=== PATIENT | female | born 1985 | race Caucasian/White ===

== ENCOUNTER 2020-06-01 11:37 | Inpatient (IN) | payer MEDICAID ==
[~2020-06-01] VITALS: Ht 152.4 cm; Wt 111.6 kg
[2020-06-01] MEDS ORDERED: IPRATROPIUM BROMIDE (0.02%) 0.5MG/2.5ML NEB HHN STA (12:05)
[2020-06-01] MEDS ORDERED: DEXAMETHASONE 10 MG/ML VIAL IV NR (13:00)
[2020-06-01 13:03] LABS: BASOPHILS % 0.3 % (0.0-2.0); EOSINOPHILS % 0.2 % (0.0-5.0); HEMATOCRIT. 41.4 % (36.0-48.0); HEMOGLOBIN. 14.4 g/dL (12.0-16.0); LYMPHOCYTES % 19.2 % (20.0-50.0); MEAN CORPUSCULAR HEMOGLOBIN 31.6 pg (28.0-32.0); MEAN CORPUSCULAR VOLUME 90.9 fL (81.0-99.0); MEAN PLATELET VOLUME 8.4 fl (7.4-10.4); MONOCYTES % 4.7 % (2.0-8.0); NEUTROPHILS % 75.6 % (40.0-76.0); PLATELET 230 x1000/uL (130-400); RED BLOOD CELL COUNT 4.55 mill/uL (4.2-5.4); RED CELL DISTRIBUTION WIDTH 14.7 % (11.6-14.6)
[2020-06-01 13:11] LABS: CHLORIDE 101 mEq/L (98-107)
[2020-06-01 13:15] LABS: ETHANOL BLOOD < 10 mg/dL
[2020-06-01 13:17] LABS: HCG SCREEN NEGATIVE
[2020-06-01 13:20] LABS: CREATINE KINASE 80 IU/L (26-192)
[2020-06-01] MEDS: ALBUTEROL (0.083%) 2.5MG/3ML NEB HHN SCH (14:10)
[2020-06-01] MEDS ORDERED: ENOXAPARIN 40MG/0.4ML SYR SUBCUT NR (15:15)
[2020-06-01 19:45] LABS: *AMPHETAMINES SCREEN URINE NEGATIVE (NEGATIVE); *BARBITURATES SCREEN URINE NEGATIVE (NEGATIVE); *BENZODIAZEPINES SCREEN URINE NEGATIVE (NEGATIVE); *COCAINE SCREEN URINE NEGATIVE (NEGATIVE); METHADONE URINE SCREEN NEGATIVE (NEGATIVE); OPIATES URINE SCREEN NEGATIVE (NEGATIVE)
[2020-06-01 19:46] LABS: CANNABINOID URINE SCREEN NEGATIVE (NEGATIVE); PHENCYCLIDINE URINE SCREEN NEGATIVE (NEGATIVE)
[2020-06-01] MEDS ORDERED: DEXTROSE 50% WATER 50ML SYRINGE IV PRN (23:00)
[2020-06-01] MEDS ORDERED: ONDANSETRON HCL 4MG/2ML INJ IV PRN (23:00)
[2020-06-01] MEDS ORDERED: POTASSIUM CHLORIDE 20MEQ TABLET SR PO NR (23:30)
[2020-06-02 00:05] VITALS: BP_SYST 114; BP_SYST 117; BP_DIAS 77; BP_DIAS 83
[2020-06-02 04:00] VITALS: BP 112/77
[2020-06-02] MEDS: BLOOD SUGAR DIAGNOSTIC STRIP TEST SCH ×4 (06:47→21:28)
[2020-06-02] MEDS: DEXAMETHASONE 6MG TABLET PO SCH (09:05)
[2020-06-02] MEDS: INSULIN LISPRO 100 UNITS/ML SUBCUT SCH ×4 (09:06→21:29)
[2020-06-02 14:00] VITALS: BP 114/74
[2020-06-02] MEDS ORDERED: GUAIFENESIN 600MG ER TABLET PO NR (14:30)
[2020-06-02] MEDS: TRAMADOL 50MG TABLET PO PRN (14:43)
[2020-06-02] MEDS ORDERED: ENOXAPARIN 40MG/0.4ML SYR SUBCUT SCH (15:00)
[2020-06-02] MEDS ORDERED: VANCOMYCIN 1,750 MG in DEXT 5% WATER 250 ML IV NR (15:00)
[2020-06-02] MEDS ORDERED: INSULIN GLARGINE UD 100 UNITS/ML SYR SUBCUT NR (16:00)
[2020-06-02] MEDS: ASPIRIN 81MG TABLET PO SCH (18:42)
[2020-06-02 20:00] VITALS: BP 125/74
[2020-06-02] MEDS ORDERED: GUAIFENESIN 600MG ER TABLET PO SCH (21:00)
[2020-06-02] MEDS: FAMOTIDINE 20MG TABLET PO SCH (21:00)
[2020-06-02] MEDS: COLCHICINE 0.6MG TABLET PO SCH (21:27)
[2020-06-02] MEDS: ASCORBIC ACID 500 MG TABLET PO SCH (21:27)
[2020-06-02] MEDS: GUAIFENESIN 600MG ER TABLET PO SCH (21:27)
[2020-06-02] MEDS: INSULIN GLARGINE UD 100 UNITS/ML SYR SUBCUT SCH (21:28)
[2020-06-02] MEDS: VANCOMYCIN 750 MG PREMIX 150 ML IV SCH (21:31)
[2020-06-02] MEDS: ACETAMINOPHEN 325MG TABLET PO PRN (21:32)
[2020-06-02] MEDS ORDERED: IVERMECTIN 3 MG TABLET PO NR (23:15)
[2020-06-03] VITALS: BP 115/72
[2020-06-03 04:00] VITALS: BP 120/79
[2020-06-03] MEDS: TRAMADOL 50MG TABLET PO PRN ×3 (06:05→13:57)
[2020-06-03] MEDS: VANCOMYCIN 750 MG PREMIX 150 ML IV SCH ×3 (06:05→22:14)
[2020-06-03] MEDS: BLOOD SUGAR DIAGNOSTIC STRIP TEST SCH ×4 (06:43→20:24)
[2020-06-03 07:10] LABS: CHLORIDE 102 mEq/L (98-107)
[2020-06-03] MEDS: INSULIN LISPRO 100 UNITS/ML SUBCUT SCH ×4 (07:10→21:52)
[2020-06-03 07:24] LABS: BASOPHILS % 0.2 % (0.0-2.0); EOSINOPHILS % 0.4 % (0.0-5.0); HEMATOCRIT. 38.7 % (36.0-48.0); HEMOGLOBIN. 13.5 g/dL (12.0-16.0); LYMPHOCYTES % 19.6 % (20.0-50.0); MEAN CORPUSCULAR HEMOGLOBIN 31.8 pg (28.0-32.0); MEAN CORPUSCULAR VOLUME 91.2 fL (81.0-99.0); MEAN PLATELET VOLUME 8.3 fl (7.4-10.4); MONOCYTES % 4.2 % (2.0-8.0); NEUTROPHILS % 75.6 % (40.0-76.0); PLATELET 290 x1000/uL (130-400); RED BLOOD CELL COUNT 4.25 mill/uL (4.2-5.4); RED CELL DISTRIBUTION WIDTH 14.4 % (11.6-14.6)
[2020-06-03 08:00] VITALS: BP 102/69
[2020-06-03] MEDS: ERGOCALCIFEROL 50000UNITS CAPSULE PO SCH (09:34)
[2020-06-03] MEDS: ASPIRIN 81MG TABLET PO SCH (09:34)
[2020-06-03] MEDS: DEXAMETHASONE 6MG TABLET PO SCH (09:34)
[2020-06-03] MEDS: GUAIFENESIN 600MG ER TABLET PO SCH ×2 (09:34→20:24)
[2020-06-03] MEDS: ASCORBIC ACID 500 MG TABLET PO SCH ×2 (09:34→20:24)
[2020-06-03] MEDS: INSULIN GLARGINE UD 100 UNITS/ML SYR SUBCUT SCH ×2 (09:36→21:51)
[2020-06-03] MEDS: ENOXAPARIN 30MG/0.3ML SYR SUBCUT SCH ×2 (09:36→20:24)
[2020-06-03 14:00] VITALS: BP 100/67
[2020-06-03 14:45] LABS: BG BASE EXCESS 1.1 mmol/L (-2.0-2.0); BG CARBOXYHEMOGLOBIN 0.5 % (0.5-1.5); BG DEOXYHEMOGLOBIN 6.8 % (0.0-5.0); BG FRACTION INSPIRED OXYGEN 99.9; BG HCO3 ACT 25.6 mmol/L (22.0-26.0); BG OXYGEN SATURATION 93.2 % (92.0-98.5); BG OXYHEMOGLOBIN 92.7 % (94.0-97.0); BG PCO2 40.2 mmHg (35.0-45.0); BG PH 7.422 (7.350-7.450); BG PO2 66.8 mmHg (75.0-100.0); BG SAMPLE SITE RIGHT RADIAL; BG TOTAL HEMOGLOBIN 13.9 g/dL (12.0-18.0); BG VENT MODE MASK - NRB
[2020-06-03 16:00] VITALS: BP 99/57
[2020-06-03] MEDS: COLCHICINE 0.6MG TABLET PO SCH ×2 (16:43→20:24)
[2020-06-03] MEDS: FAMOTIDINE 20MG TABLET PO SCH (20:24)
[2020-06-04] VITALS: BP 152/93
[2020-06-04 04:00] VITALS: BP 113/92
[2020-06-04] MEDS: TRAMADOL 50MG TABLET PO PRN ×2 (04:59→22:15)
[2020-06-04] MEDS: BLOOD SUGAR DIAGNOSTIC STRIP TEST SCH ×4 (06:24→21:41)
[2020-06-04] MEDS: VANCOMYCIN 750 MG PREMIX 150 ML IV SCH ×3 (06:52→21:51)
[2020-06-04] MEDS: INSULIN LISPRO 100 UNITS/ML SUBCUT SCH ×4 (06:53→22:54)
[2020-06-04 08:12] VITALS: BP 108/66
[2020-06-04 08:33] LABS: CHLORIDE 102 mEq/L (98-107)
[2020-06-04 08:41] LABS: VANCOMYCIN TROUGH 15.3 ug/mL (5.0-10.0)
[2020-06-04] MEDS: COLCHICINE 0.6MG TABLET PO SCH ×2 (09:00→21:51)
[2020-06-04] MEDS: GUAIFENESIN 600MG ER TABLET PO SCH ×2 (09:24→21:40)
[2020-06-04] MEDS: ASPIRIN 81MG TABLET PO SCH (09:24)
[2020-06-04] MEDS: ASCORBIC ACID 500 MG TABLET PO SCH ×2 (09:24→21:40)
[2020-06-04] MEDS: DEXAMETHASONE 6MG TABLET PO SCH (09:24)
[2020-06-04] MEDS: ENOXAPARIN 30MG/0.3ML SYR SUBCUT SCH ×2 (09:25→21:41)
[2020-06-04] MEDS: INSULIN GLARGINE UD 100 UNITS/ML SYR SUBCUT SCH ×2 (09:29→22:54)
[2020-06-04] MEDS ORDERED: CLONIDINE 0.1MG TABLET PO NR (09:30)
[2020-06-04 12:12] VITALS: BP 105/65
[2020-06-04] MEDS ORDERED: BENZONATATE 100MG CAPSULE PO PRN (13:45)
[2020-06-04] MEDS ORDERED: ALPRAZOLAM 0.25 MG TABLET PO PRN (13:45)
[2020-06-04] MEDS: BENZONATATE 100MG CAPSULE PO SCH (17:40)
[2020-06-04 20:00] VITALS: BP 101/57
[2020-06-04] MEDS: FAMOTIDINE 20MG TABLET PO SCH (21:41)
[2020-06-04] MEDS ORDERED: IVERMECTIN 3 MG TABLET PO NR (23:15)
[2020-06-05] VITALS (7 sets, daily range): BP systolic 116–155; BP diastolic 48–90
[2020-06-05] MEDS: BENZONATATE 100MG CAPSULE PO SCH ×4 (00:20→23:58)
[2020-06-05] MEDS ORDERED: CLONIDINE 0.1MG TABLET PO PRN (00:45)
[2020-06-05] MEDS: BLOOD SUGAR DIAGNOSTIC STRIP TEST SCH ×4 (06:16→21:17)
[2020-06-05] MEDS: VANCOMYCIN 750 MG PREMIX 150 ML IV SCH (06:28)
[2020-06-05] MEDS: GUAIFENESIN-DM 200MG-20MG/10ML UDC PO PRN ×3 (06:34→17:28)
[2020-06-05] MEDS: INSULIN LISPRO 100 UNITS/ML SUBCUT SCH ×4 (07:10→21:19)
[2020-06-05 07:42] LABS: CHLORIDE 100 mEq/L (98-107)
[2020-06-05] MEDS: ASPIRIN 81MG TABLET PO SCH (09:57)
[2020-06-05] MEDS: COLCHICINE 0.6MG TABLET PO SCH ×2 (09:57→21:17)
[2020-06-05] MEDS: ASCORBIC ACID 500 MG TABLET PO SCH ×2 (09:57→21:17)
[2020-06-05] MEDS: ENOXAPARIN 30MG/0.3ML SYR SUBCUT SCH ×2 (09:57→21:19)
[2020-06-05] MEDS: GUAIFENESIN 600MG ER TABLET PO SCH ×2 (09:57→21:17)
[2020-06-05] MEDS: DEXAMETHASONE 6MG TABLET PO SCH (09:57)
[2020-06-05] MEDS: INSULIN GLARGINE UD 100 UNITS/ML SYR SUBCUT SCH ×2 (10:05→22:09)
[2020-06-05] MEDS ORDERED: POTASSIUM CHLORIDE 20MEQ TABLET SR PO SCH (14:00)
[2020-06-05] MEDS: VANCOMYCIN 1250MG in DEXTROSE 5% WATER 250ML IV SCH ×2 (14:10→21:30)
[2020-06-05] MEDS: TRAMADOL 50MG TABLET PO PRN ×3 (14:10→16:51)
[2020-06-05] MEDS: FAMOTIDINE 20MG TABLET PO SCH (21:17)
[2020-06-06] MEDS: VANCOMYCIN 1250MG in DEXTROSE 5% WATER 250ML IV SCH ×3 (06:36→21:15)
[2020-06-06] MEDS: BLOOD SUGAR DIAGNOSTIC STRIP TEST SCH ×4 (06:40→20:33)
[2020-06-06 08:00] VITALS: BP 114/71
[2020-06-06] MEDS: ASCORBIC ACID 500 MG TABLET PO SCH ×2 (08:56→20:32)
[2020-06-06] MEDS: DEXAMETHASONE 6MG TABLET PO SCH (08:56)
[2020-06-06] MEDS: ENOXAPARIN 30MG/0.3ML SYR SUBCUT SCH ×2 (08:56→20:33)
[2020-06-06] MEDS: GUAIFENESIN 600MG ER TABLET PO SCH ×2 (08:56→20:32)
[2020-06-06] MEDS: ASPIRIN 81MG TABLET PO SCH (08:56)
[2020-06-06] MEDS: BENZONATATE 100MG CAPSULE PO SCH ×2 (08:56→17:53)
[2020-06-06] MEDS: INSULIN GLARGINE UD 100 UNITS/ML SYR SUBCUT SCH ×2 (11:58→23:16)
[2020-06-06 12:00] VITALS: BP 120/66
[2020-06-06] MEDS: INSULIN LISPRO 100 UNITS/ML SUBCUT SCH ×3 (13:03→20:34)
[2020-06-06 16:00] VITALS: BP 120/55
[2020-06-06 20:00] VITALS: BP 132/78
[2020-06-06] MEDS: FAMOTIDINE 20MG TABLET PO SCH (20:32)
[2020-06-07] VITALS: BP 119/61
[2020-06-07] MEDS: BENZONATATE 100MG CAPSULE PO SCH ×3 (00:10→17:33)
[2020-06-07 04:00] VITALS: BP 101/67
[2020-06-07] MEDS: VANCOMYCIN 1250MG in DEXTROSE 5% WATER 250ML IV SCH ×3 (05:17→22:48)
[2020-06-07] MEDS: BLOOD SUGAR DIAGNOSTIC STRIP TEST SCH ×4 (06:40→21:00)
[2020-06-07] MEDS: INSULIN LISPRO 100 UNITS/ML SUBCUT SCH ×4 (07:10→21:43)
[2020-06-07 07:43] LABS: CHLORIDE 105 mEq/L (98-107)
[2020-06-07 08:00] VITALS: BP 97/62
[2020-06-07] MEDS: GUAIFENESIN 600MG ER TABLET PO SCH ×2 (08:45→21:17)
[2020-06-07] MEDS: ASPIRIN 81MG TABLET PO SCH (08:46)
[2020-06-07] MEDS: ASCORBIC ACID 500 MG TABLET PO SCH ×2 (08:46→21:16)
[2020-06-07] MEDS: DEXAMETHASONE 6MG TABLET PO SCH (08:46)
[2020-06-07] MEDS: ENOXAPARIN 30MG/0.3ML SYR SUBCUT SCH ×2 (08:46→21:16)
[2020-06-07] MEDS: INSULIN GLARGINE UD 100 UNITS/ML SYR SUBCUT SCH ×2 (11:11→21:45)
[2020-06-07 12:00] VITALS: BP 104/70
[2020-06-07] MEDS ORDERED: MAGNESIUM/ALUMINUM HYDROXIDE/SIMETHICONE 30ML UDC PO PRN (14:45)
[2020-06-07] MEDS ORDERED: MAGNESIUM/ALUMINUM HYDROXIDE/SIMETHICONE 30ML UDC PO NR (14:45)
[2020-06-07 16:00] VITALS: BP 110/71
[2020-06-07] MEDS: GUAIFENESIN-DM 200MG-20MG/10ML UDC PO PRN (17:33)
[2020-06-07] MEDS: CEFAZOLIN 2,000 MG in DEXT 5% WATER 100 ML IV SCH (18:23)
[2020-06-07] MEDS ORDERED: LEVO100T PO (18:36)
[2020-06-07 20:00] VITALS: BP 92/54
[2020-06-07] MEDS: FAMOTIDINE 20MG TABLET PO SCH (21:17)
[2020-06-08] MEDS: CEFAZOLIN 2,000 MG in DEXT 5% WATER 100 ML IV SCH ×3 (03:15→16:39)
[2020-06-08 04:00] VITALS: BP 100/56
[2020-06-08] MEDS: LEVOTHYROXINE SODIUM 100MCG TABLET PO SCH (05:12)
[2020-06-08] MEDS: INSULIN LISPRO 100 UNITS/ML SUBCUT SCH ×4 (06:32→21:59)
[2020-06-08] MEDS: BLOOD SUGAR DIAGNOSTIC STRIP TEST SCH ×4 (06:33→21:35)
[2020-06-08 08:00] VITALS: BP 108/64
[2020-06-08] MEDS: ERGOCALCIFEROL 50000UNITS CAPSULE PO SCH (09:09)
[2020-06-08] MEDS: DEXAMETHASONE 6MG TABLET PO SCH (09:09)
[2020-06-08] MEDS: ASPIRIN 81MG TABLET PO SCH (09:09)
[2020-06-08] MEDS: GUAIFENESIN 600MG ER TABLET PO SCH ×2 (09:09→21:35)
[2020-06-08] MEDS: ASCORBIC ACID 500 MG TABLET PO SCH ×2 (09:09→21:35)
[2020-06-08] MEDS: ENOXAPARIN 30MG/0.3ML SYR SUBCUT SCH ×2 (09:10→21:35)
[2020-06-08] MEDS: INSULIN GLARGINE UD 100 UNITS/ML SYR SUBCUT SCH ×2 (10:00→21:58)
[2020-06-08 12:00] VITALS: BP 113/75
[2020-06-08 16:00] VITALS: BP 97/58
[2020-06-08] MEDS: PHENOL/SODIUM PHENOLATE 1.4% SRPAY 177ML MM SCH (16:40)
[2020-06-08 20:00] VITALS: BP 106/55
[2020-06-08] MEDS: FAMOTIDINE 20MG TABLET PO SCH (21:35)
[2020-06-09] VITALS: BP 98/56
[2020-06-09] MEDS: CEFAZOLIN 2,000 MG in DEXT 5% WATER 100 ML IV SCH ×3 (01:34→17:02)
[2020-06-09 04:00] VITALS: BP 93/57
[2020-06-09] MEDS: BLOOD SUGAR DIAGNOSTIC STRIP TEST SCH ×4 (06:06→21:34)
[2020-06-09] MEDS: PHENOL/SODIUM PHENOLATE 1.4% SRPAY 177ML MM SCH ×2 (06:07→17:02)
[2020-06-09] MEDS: LEVOTHYROXINE SODIUM 100MCG TABLET PO SCH (06:07)
[2020-06-09] MEDS: INSULIN LISPRO 100 UNITS/ML SUBCUT SCH ×4 (07:10→21:59)
[2020-06-09 08:00] VITALS: BP 105/63
[2020-06-09] MEDS: DEXAMETHASONE 6MG TABLET PO SCH (08:27)
[2020-06-09] MEDS: GUAIFENESIN 600MG ER TABLET PO SCH ×2 (08:27→21:33)
[2020-06-09] MEDS: ASPIRIN 81MG TABLET PO SCH (08:27)
[2020-06-09] MEDS: ENOXAPARIN 30MG/0.3ML SYR SUBCUT SCH ×2 (08:27→21:34)
[2020-06-09] MEDS: ASCORBIC ACID 500 MG TABLET PO SCH ×2 (08:27→21:33)
[2020-06-09] MEDS: INSULIN GLARGINE UD 100 UNITS/ML SYR SUBCUT SCH ×2 (10:29→21:59)
[2020-06-09 12:00] VITALS: BP 116/64
[2020-06-09 16:00] VITALS: BP 106/44
[2020-06-09] MEDS: FAMOTIDINE 20MG TABLET PO SCH (21:33)
[2020-06-09 22:00] VITALS: BP 121/62
[2020-06-10] MEDS: CEFAZOLIN 2,000 MG in DEXT 5% WATER 100 ML IV SCH ×3 (01:28→17:04)
[2020-06-10 06:00] VITALS: BP 130/67
[2020-06-10] MEDS: LEVOTHYROXINE SODIUM 100MCG TABLET PO SCH (06:27)
[2020-06-10] MEDS: BLOOD SUGAR DIAGNOSTIC STRIP TEST SCH ×4 (06:27→20:29)
[2020-06-10] MEDS: PHENOL/SODIUM PHENOLATE 1.4% SRPAY 177ML MM SCH ×2 (06:27→17:04)
[2020-06-10] MEDS: INSULIN LISPRO 100 UNITS/ML SUBCUT SCH ×4 (07:10→20:38)
[2020-06-10 08:00] VITALS: BP 97/63
[2020-06-10] MEDS: ASCORBIC ACID 500 MG TABLET PO SCH ×2 (08:15→20:20)
[2020-06-10] MEDS: ENOXAPARIN 30MG/0.3ML SYR SUBCUT SCH ×2 (08:15→20:31)
[2020-06-10] MEDS: GUAIFENESIN 600MG ER TABLET PO SCH ×2 (08:15→20:20)
[2020-06-10] MEDS: ERGOCALCIFEROL 50000UNITS CAPSULE PO SCH (08:15)
[2020-06-10] MEDS: DEXAMETHASONE 6MG TABLET PO SCH (08:15)
[2020-06-10] MEDS: ASPIRIN 81MG TABLET PO SCH (08:15)
[2020-06-10] MEDS: INSULIN GLARGINE UD 100 UNITS/ML SYR SUBCUT SCH ×2 (09:45→22:37)
[2020-06-10 12:00] VITALS: BP 111/85
[2020-06-10 15:59] VITALS: BP 106/65
[2020-06-10 20:00] VITALS: BP 97/40
[2020-06-10] MEDS: FAMOTIDINE 20MG TABLET PO SCH (20:20)
[2020-06-11 01:00] VITALS: BP 107/66
[2020-06-11] MEDS: CEFAZOLIN 2,000 MG in DEXT 5% WATER 100 ML IV SCH ×3 (01:12→17:18)
[2020-06-11] MEDS: ACETAMINOPHEN 325MG TABLET PO PRN ×2 (01:23→17:18)
[2020-06-11] MEDS: GUAIFENESIN-DM 200MG-20MG/10ML UDC PO PRN ×2 (01:23→20:53)
[2020-06-11 04:00] VITALS: BP 107/71
[2020-06-11] MEDS: BLOOD SUGAR DIAGNOSTIC STRIP TEST SCH ×4 (06:07→20:53)
[2020-06-11] MEDS: LEVOTHYROXINE SODIUM 100MCG TABLET PO SCH (06:07)
[2020-06-11] MEDS: PHENOL/SODIUM PHENOLATE 1.4% SRPAY 177ML MM SCH ×2 (06:07→17:19)
[2020-06-11] MEDS: INSULIN LISPRO 100 UNITS/ML SUBCUT SCH ×4 (06:14→20:46)
[2020-06-11 08:00] VITALS: BP 108/63
[2020-06-11] MEDS: ASPIRIN 81MG TABLET PO SCH (08:41)
[2020-06-11] MEDS: DEXAMETHASONE 6MG TABLET PO SCH (08:41)
[2020-06-11] MEDS: GUAIFENESIN 600MG ER TABLET PO SCH ×2 (08:41→20:43)
[2020-06-11] MEDS: ASCORBIC ACID 500 MG TABLET PO SCH ×2 (08:41→20:42)
[2020-06-11] MEDS: ENOXAPARIN 30MG/0.3ML SYR SUBCUT SCH ×2 (08:41→20:53)
[2020-06-11] MEDS: INSULIN GLARGINE UD 100 UNITS/ML SYR SUBCUT SCH ×2 (09:39→22:50)
[2020-06-11 12:00] VITALS: BP 109/63
[2020-06-11 20:00] VITALS: BP 103/65
[2020-06-11] MEDS: FAMOTIDINE 20MG TABLET PO SCH (20:42)
[2020-06-11 21:15] LABS: BASOPHILS % 0.3 % (0.0-2.0); EOSINOPHILS % 0.1 % (0.0-5.0); HEMATOCRIT. 42.9 % (36.0-48.0); HEMOGLOBIN. 14.6 g/dL (12.0-16.0); LYMPHOCYTES % 15.6 % (20.0-50.0); MEAN CORPUSCULAR HEMOGLOBIN 31.8 pg (28.0-32.0); MEAN CORPUSCULAR VOLUME 93.3 fL (81.0-99.0); MEAN PLATELET VOLUME 8.3 fl (7.4-10.4); MONOCYTES % 6.5 % (2.0-8.0); NEUTROPHILS % 77.5 % (40.0-76.0); PLATELET 354 x1000/uL (130-400); RED BLOOD CELL COUNT 4.59 mill/uL (4.2-5.4); RED CELL DISTRIBUTION WIDTH 14.4 % (11.6-14.6)
[2020-06-11 21:23] LABS: CHLORIDE 103 mEq/L (98-107)
[2020-06-12] VITALS: BP 107/60
[2020-06-12] MEDS: CEFAZOLIN 2,000 MG in DEXT 5% WATER 100 ML IV SCH ×3 (02:19→17:44)
[2020-06-12 04:00] VITALS: BP 124/71
[2020-06-12] MEDS: PHENOL/SODIUM PHENOLATE 1.4% SRPAY 177ML MM SCH ×2 (05:35→17:45)
[2020-06-12] MEDS: BLOOD SUGAR DIAGNOSTIC STRIP TEST SCH ×4 (05:52→21:53)
[2020-06-12] MEDS: INSULIN LISPRO 100 UNITS/ML SUBCUT SCH ×4 (06:26→21:00)
[2020-06-12 08:00] VITALS: BP 99/54
[2020-06-12] MEDS: GUAIFENESIN 600MG ER TABLET PO SCH ×2 (09:07→21:53)
[2020-06-12] MEDS: ASPIRIN 81MG TABLET PO SCH (09:07)
[2020-06-12] MEDS: ASCORBIC ACID 500 MG TABLET PO SCH ×2 (09:07→21:53)
[2020-06-12] MEDS: LEVOTHYROXINE SODIUM 100MCG TABLET PO SCH (09:07)
[2020-06-12] MEDS: ENOXAPARIN 30MG/0.3ML SYR SUBCUT SCH ×2 (09:07→21:52)
[2020-06-12] MEDS: INSULIN GLARGINE UD 100 UNITS/ML SYR SUBCUT SCH (10:24)
[2020-06-12 12:00] VITALS: BP 107/65
[2020-06-12 16:00] VITALS: BP 93/56
[2020-06-12 20:00] VITALS: BP 118/74
[2020-06-12] MEDS: FAMOTIDINE 20MG TABLET PO SCH (22:09)
[2020-06-13] VITALS: BP 101/44
[2020-06-13] MEDS: CEFAZOLIN 2,000 MG in DEXT 5% WATER 100 ML IV SCH ×2 (01:54→10:54)
[2020-06-13 04:00] VITALS: BP 116/55
[2020-06-13] MEDS: BLOOD SUGAR DIAGNOSTIC STRIP TEST SCH ×2 (05:52→13:17)
[2020-06-13] MEDS: ACETAMINOPHEN 325MG TABLET PO PRN (06:38)
[2020-06-13] MEDS: LEVOTHYROXINE SODIUM 100MCG TABLET PO SCH (06:48)
[2020-06-13] MEDS: PHENOL/SODIUM PHENOLATE 1.4% SRPAY 177ML MM SCH (06:51)
[2020-06-13] MEDS: INSULIN LISPRO 100 UNITS/ML SUBCUT SCH ×2 (07:27→13:10)
[2020-06-13] MEDS: ASPIRIN 81MG TABLET PO SCH (07:58)
[2020-06-13] MEDS: ASCORBIC ACID 500 MG TABLET PO SCH (07:58)
[2020-06-13] MEDS: ENOXAPARIN 30MG/0.3ML SYR SUBCUT SCH (07:58)
[2020-06-13] MEDS: GUAIFENESIN 600MG ER TABLET PO SCH (07:58)
[2020-06-13] MEDS ORDERED: BENZ-16 MT (11:48)
[2020-06-13] MEDS ORDERED: INSU100I28 SQ (11:48)
[2020-06-13] MEDS ORDERED: LEVO100T9 PO (11:48)
[2020-06-13 14:21] VITALS: BP 122/57
[2020-06-13 16:13] VITALS: BP 129/59
== END 2020-06-13 18:30 | disposition home or self-care (01) | DRG 720 ==
LOC: ER 11:37 → 7EST 15:19 → EDBEDREQ 15:28 → EDBEDREQSVC 15:28 → ENRESERV 22:55 → 7WST 06-11 10:16
PROVIDERS: ADMIT Internal Medicine; ATTEND Internal Medicine
DX: A41.89 Other specified sepsis (principal); U07.1 COVID-19; J96.01 Acute respiratory failure with hypoxia; J12.82 Pneumonia due to coronavirus disease 2019; E03.9 Hypothyroidism, unspecified; B97.89 Other viral agents as the cause of diseases classified elsewhere; E66.01 Morbid (severe) obesity due to excess calories; J45.909 Unspecified asthma, uncomplicated; E11.65 Type 2 diabetes mellitus with hyperglycemia; R74.01 Elevation of levels of liver transaminase levels; E44.1 Mild protein-calorie malnutrition; I10 Essential (primary) hypertension; E87.6 Hypokalemia; E87.1 Hypo-osmolality and hyponatremia; Z68.43 Body mass index [BMI] 50.0-59.9, adult; Z87.891 Personal history of nicotine dependence; Z83.3 Family history of diabetes mellitus; Z90.10 Acquired absence of unspecified breast and nipple
CPT/HCPCS: 36415; 36600; 71045; 80048; 80053; 80202; 80305; 80320; 82375; 82550; 82728; 82805; 82962; 83036; 83605; 83615; 83880; 84145; 84443; 84484; 84703; 85025; 85384; 86140; 87077; 87186; 87635; 93005; 94640; 99285; J0690; J1100; J1650; J1815; J2405; J3370; J7040; J7060; G0480

== ENCOUNTER 2020-10-21 11:55 | Observation (INO) | payer MEDICAID, OTHER ==
[~2020-10-21] VITALS: Ht 152.4 cm; Wt 125.2 kg
[~2020-10-21 11:55] MED LIST: BENZ-16 MT; INSU100I28 SQ; LEVO100T PO; LEVO100T9 PO
[2020-10-21] MEDS ORDERED: ACETAMINOPHEN 325MG TABLET PO ONE (13:00)
[2020-10-21] MEDS ORDERED: SODIUM CHLORIDE 0.9% 500 ML IV ONE (13:00)
[2020-10-21 13:05] LABS: BASOPHILS % 0.3 % (0.0-2.0); EOSINOPHILS % 1.1 % (0.0-5.0); HEMOGLOBIN. 11.4 g/dL (12.0-16.0); LYMPHOCYTES % 8.3 % (20.0-50.0); MEAN CORPUSCULAR HEMOGLOBIN 32.5 pg (28.0-32.0); MEAN CORPUSCULAR VOLUME 91.4 fL (81.0-99.0); MONOCYTES % 4.5 % (2.0-8.0); NEUTROPHILS % 85.8 % (40.0-76.0); PLATELET 133 x1000/uL (130-400); RED CELL DISTRIBUTION WIDTH 14.2 % (11.6-14.6)
[2020-10-21 13:06] LABS: CHLORIDE 105 mEq/L (98-107)
[2020-10-21 13:30] LABS: B-HCG QUANTITATIVE 45758 mIU/mL (<3)
[2020-10-21] MEDS ORDERED: DEXT 5%/LR + PITOCIN 20UNITS/L 1,000 ML IV ONE (15:15)
[2020-10-21] MEDS ORDERED: MORPHINE SULFATE 2 MG/ML CPJ (NOT FOR IM USE) IV PRN (17:30)
[2020-10-21 18:49] VITALS: BP 136/62
[2020-10-21 20:00] VITALS: BP 96/53
[2020-10-21 21:02] LABS: INR 1.1; PROTHROMBIN TIME 11.4 sec (9.6-11.0)
[2020-10-21] MEDS ORDERED: PROPOFOL 200MG/20ML VIAL IV ONE (22:02)
[2020-10-21] MEDS ORDERED: MIDAZOLAM HCL 2 MG/2 ML VIAL ONE (22:03)
[2020-10-21] MEDS ORDERED: OXYTOCIN 10 UNITS/ML 1ML ONE (22:12)
[2020-10-21] MEDS ORDERED: ONDANSETRON HCL 4MG/2ML INJ IV PRN (22:30)
[2020-10-21] MEDS ORDERED: HYDROMORPHONE HCL/PF 2MG/ML CPJ IV PRN (22:30)
[2020-10-21] MEDS ORDERED: RHO(D) IMMUNE GLOBULIN 300 MCG/SYR IM PRN (22:45)
[2020-10-21] MEDS ORDERED: ACETAMINOPHEN 650MG SUPP PR PRN (22:45)
[2020-10-22 00:25] VITALS: BP 105/44
[2020-10-22] MEDS: ACETAMINOPHEN 325MG TABLET PO PRN ×2 (01:37→12:53)
[2020-10-22 01:50] VITALS: BP 106/69
[2020-10-22 04:00] VITALS: BP 106/69
[2020-10-22 10:51] VITALS: BP 106/62
== END 2020-10-22 15:32 | disposition home or self-care (01) ==
LOC: ER 12:25 → 6EST 15:27 → INTOOBSV 15:27 → ENRESERV 15:48
PROVIDERS: ADMIT Obstetrics & Gynecology; ATTEND Obstetrics & Gynecology
DX: O03.4 Incomplete spontaneous abortion without complication (principal); O99.212 Obesity complicating pregnancy, second trimester; E66.01 Morbid (severe) obesity due to excess calories; O24.312 Unspecified pre-existing diabetes mellitus in pregnancy, second trimester; E11.9 Type 2 diabetes mellitus without complications; O10.912 Unspecified pre-existing hypertension complicating pregnancy, second trimester; E03.9 Hypothyroidism, unspecified; O99.282 Endocrine, nutritional and metabolic diseases complicating pregnancy, second trimester; Z3A.16 16 weeks gestation of pregnancy; Z79.4 Long term (current) use of insulin; Z79.899 Other long term (current) drug therapy
CPT/HCPCS: 36415; 59812; 76805; 80053; 84702; 85025; 85610; 86850; 86870; 86900; 86901; 87426; 88309; 90384; 96365; 96372; 96375; 99284; G0378; J2250; J2270; J2590; J2704; J7040; 99285

== ENCOUNTER 2024-03-16 22:08 | Emergency (ER) | payer OTHER ==
[~2024-03-16] VITALS: Ht 152.4 cm; Wt 114.0 kg
[~2024-03-16 22:08] MED LIST changes: -BENZ-16 MT; +BLOO-1812 MC; +CLOT45CR62 VG; +IBUP-2029 PO; -INSU100I28 SQ; +LANTUSUD SUBCUT; -LEVO100T PO; -LEVO100T9 PO; +METF-416 PO; +SULF1TAB48 MT; +SYN150 MT
[2024-03-16 22:50] VITALS: O2SAT 100
[2024-03-17] MEDS ORDERED: CEPH500C2 MT (00:17)
[2024-03-17] MEDS ORDERED: IBUP-2029 MT (00:17)
[2024-03-17] MEDS: ACETAMINOPHEN 325MG TABLET PO ONE (00:35)
[2024-03-17] MEDS: ACETAMINOPHEN 325MG TABLET PO NR (00:43)
[2024-03-17 00:44] VITALS: BP 142/92; PULSE 78; RESP 17; TEMP 36.94740; O2SAT 99
== END 2024-03-17 00:45 | disposition home or self-care (01) ==
LOC: ER 22:08
DX: S60.011A Contusion of right thumb without damage to nail, initial encounter (principal); E11.9 Type 2 diabetes mellitus without complications; Z79.84 Long term (current) use of oral hypoglycemic drugs; X58.XXXA Exposure to other specified factors, initial encounter; Y93.89 Activity, other specified; Y92.89 Other specified places as the place of occurrence of the external cause; Y99.8 Other external cause status
CPT/HCPCS: 73140; 99283

== ENCOUNTER 2024-06-17 18:52 | Emergency (ER) | payer OTHER ==
[~2024-06-17] VITALS: Ht 154.9 cm; Wt 120.0 kg
[~2024-06-17 18:52] MED LIST changes: +CEPH500C2 MT; +IBUP-2029 MT
[2024-06-17 18:53] VITALS: BP 150/100; PULSE 90; RESP 18; TEMP 36.9; O2SAT 98
== END 2024-06-17 23:03 | disposition left against medical advice (07) ==
LOC: ER 18:52
DX: R10.84 Generalized abdominal pain (principal); Z53.21 Procedure and treatment not carried out due to patient leaving prior to being seen by health care provider

== ENCOUNTER 2024-09-08 11:17 | Inpatient (IN) | payer OTHER ==
[~2024-09-08] VITALS: Ht 152.4 cm; Wt 116.6 kg
[2024-09-08 11:21] VITALS: O2SAT 98
[2024-09-08 12:11] LABS: HEMATOCRIT. 37.9 % (36.0-48.0); HEMOGLOBIN. 12.6 g/dL (12.0-16.0); MEAN CORPUSCULAR HEMOGLOBIN 28.2 pg (28.0-32.0); MEAN CORPUSCULAR HGB CONC 33.3 g/dL (31.0-37.0); MEAN CORPUSCULAR VOLUME 84.5 fL (81.0-99.0); MEAN PLATELET VOLUME 9.7 fl (7.4-10.4); PLATELET 215 x1000/uL (130-400); RED BLOOD CELL COUNT 4.48 mill/uL (4.2-5.4); RED CELL DISTRIBUTION WIDTH 15.8 % (11.6-14.6); WHITE BLOOD COUNT 12.3 x1000/uL (4.5-11.0)
[2024-09-08 12:11] LABS: CLARITY URINE CLOUDY (CLEAR); COLOR URINE YELLOW (YELLOW); GLUCOSE URINE 3+ (NEGATIVE); KETONES URINE 3+ (NEGATIVE); LEUKOCYTE ESTERASE URINE 1+ (NEGATIVE); NITRITE URINE POSITIVE (NEGATIVE); OCCULT BLOOD URINE 1+ (NEGATIVE); PH URINE 5.5 (4.5-8.0); PROTEIN URINE 2+ (NEGATIVE); SPECIFIC GRAVITY URINE 1.035 (1.005-1.030)
[2024-09-08 12:18] LABS: DIFFERENTIAL COMMENT 1
[2024-09-08 12:21] LABS: CHLORIDE 98 mEq/L (98-107); POTASSIUM 3.8 mEq/L (3.5-5.1); SODIUM 134 mEq/L (136-145)
[2024-09-08 12:22] LABS: CALCIUM 9.5 mg/dL (8.7-10.4); CARBON DIOXIDE 22 mEq/L (21-32)
[2024-09-08 12:27] LABS: UREA NITROGEN BLOOD 16 mg/dL (9-23)
[2024-09-08] MEDS: SODIUM CHLORIDE 0.9% 1,000 ML IV ONE ×2 (12:30→14:03)
[2024-09-08] MEDS: KETOROLAC 30MG/ML VIAL IV STA (12:31)
[2024-09-08] MEDS: ONDANSETRON HCL 4MG/2ML INJ IV STA (12:31)
[2024-09-08 12:38] LABS: GLUCOSE 430 mg/dL (70-105)
[2024-09-08 12:57] LABS: SQUAMOUS EPITHELIAL CELL URINE 2+ /lpf (RARE/1+); YEAST URINE 1+
[2024-09-08 12:59] LABS: RBC URINE 0-2 /hpf (0-2)
[2024-09-08 13:00] LABS: PLATELET ESTIMATE NORMAL
[2024-09-08 13:06] LABS: BACTERIA URINE 2+
[2024-09-08 13:08] LABS: WBC URINE TNTC /hpf (0-2)
[2024-09-08 13:08] LABS: HCG SCREEN NEGATIVE
[2024-09-08] MEDS: SODIUM CHLORIDE 0.9% (SEPSIS BOLUS) IV ONE (14:03)
[2024-09-08] MEDS: CEFTRIAXONE 2GM/50ML 50 ML IV ONE (14:33)
[2024-09-08 14:51] LABS: ALANINE AMINOTRANSFERASE 88 IU/L (10-49); ALBUMIN 4.1 g/dL (3.2-4.8); ASPARTATE AMINOTRANSFERASE 35 IU/L (<34); BILIRUBIN DIRECT 0.3 mg/dL (<=3.0)
[2024-09-08 14:52] LABS: BILIRUBIN TOTAL 0.6 mg/dL (0.1-1.0); PROTEIN TOTAL 7.6 g/dL (6.0-8.3)
[2024-09-08 15:02] LABS: TROPONIN I HIGH SENSITIVITY < 4 ng/L (3.0-34)
[2024-09-08] MEDS ORDERED: DEXTROSE 50% WATER 50ML SYRINGE IV PRN ×2 (15:15→17:30)
[2024-09-08] MEDS: BLOOD SUGAR DIAGNOSTIC STRIP TEST SCH ×2 (16:12→17:59)
[2024-09-08] MEDS: INSULIN LISPRO 100 UNITS/ML SUBCUT STA (16:18)
[2024-09-08] MEDS: ACETAMINOPHEN 325MG TABLET PO PRN (17:38)
[2024-09-08 17:42] VITALS: BP 112/40; PULSE 115; RESP 18; TEMP 37.9
[2024-09-08 18:00] VITALS: BP 112/40; PULSE 115; RESP 18; TEMP 37.3; O2SAT 96
[2024-09-08] MEDS: INSULIN LISPRO 100 UNITS/ML SUBCUT SCH (18:25)
[2024-09-08 20:00] VITALS: BP 89/42; PULSE 105; RESP 20; TEMP 36.1; O2SAT 97
[2024-09-08] MEDS: ATORVASTATIN CALCIUM 40MG TABLET PO SCH (21:52)
[2024-09-08] MEDS: INSULIN GLARGINE 100 UNITS/ML SUBCUT SCH (21:52)
[2024-09-08] MEDS: SODIUM CHLORIDE 0.9% 1,000 ML IV SCH (22:16)
[2024-09-09] MEDS: ONDANSETRON HCL 4MG/2ML INJ IV PRN (01:01)
[2024-09-09] MEDS: MORPHINE SULFATE 2 MG/ML INJ (NOT FOR IM USE) IV NR (01:15)
[2024-09-09 08:00] VITALS: BP 102/57; PULSE 92; RESP 18; TEMP 36.8; O2SAT 97
[2024-09-09] MEDS: LOSARTAN 50 MG TABLET PO SCH (10:33)
[2024-09-09] MEDS: ENOXAPARIN 40MG/0.4ML SYR SUBCUT SCH (10:34)
[2024-09-09 10:45] LABS: HEMOGLOBIN. 10.7 g/dL (12.0-16.0); MEAN CORPUSCULAR HEMOGLOBIN 28.2 pg (28.0-32.0); MEAN CORPUSCULAR HGB CONC 33.5 g/dL (31.0-37.0); MEAN CORPUSCULAR VOLUME 84.1 fL (81.0-99.0); MEAN PLATELET VOLUME 9.4 fl (7.4-10.4); PLATELET 189 x1000/uL (130-400); RED CELL DISTRIBUTION WIDTH 15.9 % (11.6-14.6); WHITE BLOOD COUNT 8.4 x1000/uL (4.5-11.0)
[2024-09-09 10:56] LABS: CARBON DIOXIDE 23 mEq/L (21-32); CHLORIDE 103 mEq/L (98-107); DIFFERENTIAL COMMENT 1; POTASSIUM 3.5 mEq/L (3.5-5.1); SODIUM 135 mEq/L (136-145)
[2024-09-09 10:57] LABS: CALCIUM 8.6 mg/dL (8.7-10.4)
[2024-09-09 11:02] LABS: CREATININE 0.9 mg/dL (0.6-1.0); GLUCOSE 302 mg/dL (70-105); TRIGLYCERIDE 164 mg/dL (0-150)
[2024-09-09 11:03] LABS: LDL CHOLESTEROL 58 mg/dL (5-100); UREA NITROGEN BLOOD 16 mg/dL (9-23)
[2024-09-09 11:04] LABS: CHOLESTEROL 129 mg/dL (<200); HDL CHOLESTEROL 35 mg/dL (>65)
[2024-09-09 12:00] VITALS: BP 104/38; PULSE 99; RESP 18; TEMP 36.4; O2SAT 98
[2024-09-09] MEDS: INSULIN LISPRO 100 UNITS/ML SUBCUT NR (12:00)
[2024-09-09 14:51] LABS: PLATELET ESTIMATE NORMAL
[2024-09-09] MEDS: SODIUM CHLORIDE 0.9% 500 ML IV ONE (15:57)
[2024-09-09 16:00] VITALS: BP 88/48; PULSE 95; RESP 17; TEMP 37; O2SAT 98
[2024-09-09] MEDS: CEFTRIAXONE 1GM/50ML 50 ML IV SCH (16:14)
== END 2024-09-09 20:05 | disposition short-term general hospital (02) | DRG 720 ==
LOC: ER 11:17 → 6WST 14:20 → EDBEDREQTM 15:38 → EDBEDREQ 15:38 → EDBEDREQSVC 15:39
PROVIDERS: ADMIT Internal Medicine; ATTEND Internal Medicine
DX: A41.9 Sepsis, unspecified organism (principal); Z68.43 Body mass index [BMI] 50.0-59.9, adult; N12 Tubulo-interstitial nephritis, not specified as acute or chronic; E03.9 Hypothyroidism, unspecified; E11.9 Type 2 diabetes mellitus without complications; I10 Essential (primary) hypertension; E66.9 Obesity, unspecified; Z83.3 Family history of diabetes mellitus; Z98.891 History of uterine scar from previous surgery; Z83.6 Family history of other diseases of the respiratory system; Z88.8 Allergy status to other drugs, medicaments and biological substances; Z90.49 Acquired absence of other specified parts of digestive tract
CPT/HCPCS: 36415; 71045; 74176; 80048; 80061; 80076; 81003; 82962; 83036; 83605; 84145; 84484; 84703; 85025; 87077; 87186; 93005; 99291; J0696; J1650; J1815; J1885; J2270; J2405; J7030

== ENCOUNTER 2024-12-28 18:16 | Emergency (ER) | payer OTHER ==
[~2024-12-28] VITALS: Ht 157.5 cm; Wt 114.0 kg
[~2024-12-28 18:16] MED LIST changes: +IBUP-1455 MT; +IBUP-1455 PO; -IBUP-2029 MT; -IBUP-2029 PO
[2024-12-28 18:24] VITALS: O2SAT 97
[2024-12-28] MEDS: SODIUM CHLORIDE 0.9% 1,000 ML IV ONE (18:49)
[2024-12-28 19:56] LABS: BASOPHILS % 0.3 % (0.0-2.0); EOSINOPHILS % 0.3 % (0.0-5.0); HEMATOCRIT. 27.8 % (36.0-48.0); HEMOGLOBIN. 9.2 g/dL (12.0-16.0); LYMPHOCYTES % 11.0 % (20.0-50.0); MEAN PLATELET VOLUME 8.9 fl (7.4-10.4); MONOCYTES % 9.0 % (2.0-8.0); NEUTROPHILS % 79.4 % (40.0-76.0); PLATELET 218 x1000/uL (130-400); RED BLOOD CELL COUNT 3.42 mill/uL (4.2-5.4); RED CELL DISTRIBUTION WIDTH 15.0 % (11.6-14.6)
[2024-12-28 20:08] LABS: HCG SCREEN NEGATIVE
[2024-12-28 20:17] LABS: CREATININE 0.9 mg/dL (0.6-1.0); UREA NITROGEN BLOOD 9 mg/dL (9-23)
[2024-12-28 20:19] LABS: ASPARTATE AMINOTRANSFERASE 33 IU/L (<34); BILIRUBIN DIRECT 0.2 mg/dL (<=3.0); BILIRUBIN TOTAL 0.6 mg/dL (0.1-1.0); PROTEIN TOTAL 7.1 g/dL (6.0-8.3)
[2024-12-28 20:21] LABS: TROPONIN I HIGH SENSITIVITY < 4 ng/L (3.0-34)
[2024-12-28] MEDS: SODIUM CHLORIDE 0.9% (SEPSIS BOLUS) IV ONE (21:17)
[2024-12-28] MEDS: CEFTRIAXONE 1GM/50ML 50 ML IV ONE (21:18)
[2024-12-28] MEDS: POTASSIUM CHLORIDE 20MEQ TABLET SR PO ONE (21:18)
[2024-12-28 22:14] LABS: INFLUENZA TYPE A Presumptive Negative (Pres. Neg.)
[2024-12-28 22:15] LABS: INFLUENZA TYPE B Presumptive Negative (Pres. Neg.)
[2024-12-28 22:16] LABS: RESPIRATORY SYNCYTIAL VIRUS Not Detected (Not Detectd)
[2024-12-28] MEDS: AZITHROMYCIN 500MG/250ML 250 ML IV ONE (22:43)
[2024-12-28 23:40] VITALS: BP 94/49; PULSE 68; RESP 19; TEMP 37.2; O2SAT 97
== END 2024-12-29 00:04 | disposition short-term general hospital (02) ==
LOC: ER 18:16 → CMPBEDREQ 12-29 19:24
DX: J18.9 Pneumonia, unspecified organism (principal); D64.9 Anemia, unspecified; E03.9 Hypothyroidism, unspecified; E11.65 Type 2 diabetes mellitus with hyperglycemia; E78.00 Pure hypercholesterolemia, unspecified; E86.0 Dehydration; E87.6 Hypokalemia; I11.0 Hypertensive heart disease with heart failure; I50.9 Heart failure, unspecified; Z59.00 Homelessness unspecified; Z79.84 Long term (current) use of oral hypoglycemic drugs; Z79.890 Hormone replacement therapy; Z91.148 Patient's other noncompliance with medication regimen for other reason; Z20.822 Contact with and (suspected) exposure to COVID-19
CPT/HCPCS: 99285; 96365; 96361; 71045; 96367; 87426; 80076; 80048; 82010; 82962; 84703; 83605; 83690; 83735; 85025; 87420; 87040; 87186; 84484; 87804 ×2; 87077; 36415; 93005; J0456; J0696; J7030

== ENCOUNTER 2025-04-19 08:56 | Emergency (ER) | payer OTHER ==
[~2025-04-19] VITALS: Ht 165.1 cm; Wt 250.0 kg
[2025-04-19 09:07] VITALS: O2SAT 99
[2025-04-19 11:09] LABS: PLATELET 269 x1000/uL (130-400); RED BLOOD CELL COUNT 4.31 mill/uL (4.2-5.4); RED CELL DISTRIBUTION WIDTH 17.0 % (11.6-14.6)
[2025-04-19 11:22] LABS: CREATININE 0.9 mg/dL (0.6-1.0); UREA NITROGEN BLOOD 12 mg/dL (9-23)
[2025-04-19 11:24] LABS: TROPONIN I HIGH SENSITIVITY < 4 ng/L (3.0-34)
[2025-04-19 11:30] LABS: HCG SCREEN NEGATIVE
[2025-04-19 11:47] LABS: PROTEIN TOTAL 7.8 g/dL (6.0-8.3)
[2025-04-19 11:48] LABS: ASPARTATE AMINOTRANSFERASE 23 IU/L (<34); BILIRUBIN DIRECT < 0.1 mg/dL (<=3.0); BILIRUBIN TOTAL 0.3 mg/dL (0.1-1.0)
[2025-04-19] MEDS: IBUPROFEN 600MG TABLET PO ONE (12:35)
[2025-04-19] MEDS: ONDANSETRON 4MG ODT PO ONE (12:35)
[2025-04-19 13:22] LABS: CLARITY URINE CLOUDY (CLEAR); COLOR URINE YELLOW (YELLOW); GLUCOSE URINE 3+ (NEGATIVE); KETONES URINE NEGATIVE (NEGATIVE); LEUKOCYTE ESTERASE URINE 1+ (NEGATIVE); NITRITE URINE NEGATIVE (NEGATIVE); OCCULT BLOOD URINE NEGATIVE (NEGATIVE); PH URINE 6.0 (4.5-8.0); PROTEIN URINE NEGATIVE (NEGATIVE); SPECIFIC GRAVITY URINE 1.033 (1.005-1.030); UROBILINOGEN URINE 1.0 E.U./dL (0.2-1.0)
[2025-04-19] MEDS: SODIUM CHLORIDE 0.9% 1,000 ML IV NR (13:50)
[2025-04-19 14:00] LABS: BACTERIA URINE 3+; SQUAMOUS EPITHELIAL CELL URINE 3+ /lpf (RARE/1+)
[2025-04-19 14:02] LABS: RBC URINE 0-2 /hpf (0-2); WBC URINE TNTC /hpf (0-2)
[2025-04-19] MEDS: CEFTRIAXONE 1GM/50ML 50 ML IV ONE (14:42)
[2025-04-19] MEDS: SODIUM CHLORIDE 0.9% 1,000 ML IV ONE (14:45)
[2025-04-19] MEDS ORDERED: SULF1TAB47 MT (16:36)
[2025-04-19 17:14] VITALS: BP 108/73; PULSE 87; RESP 19; TEMP 36.8; O2SAT 99
== END 2025-04-19 17:15 | disposition home or self-care (01) ==
LOC: ER 08:56
DX: N39.0 Urinary tract infection, site not specified (principal); E11.65 Type 2 diabetes mellitus with hyperglycemia; E03.9 Hypothyroidism, unspecified; E78.00 Pure hypercholesterolemia, unspecified; I10 Essential (primary) hypertension; Z59.00 Homelessness unspecified; Z79.890 Hormone replacement therapy; Z79.84 Long term (current) use of oral hypoglycemic drugs
CPT/HCPCS: 99284; 96365; 96361; 80076; 80048; 81003; 82010; 82962; 84703; 83690; 83735; 85027; 87086; 87186; 84484; 87077; 93005; 36415; Q0162; J0696; J7030; 96366